=== PATIENT | female | born 1965 | race Caucasian/White ===

== ENCOUNTER 2018-01-12 13:48 | Emergency (ER) | payer OTHER ==
[~2018-01-12] VITALS: Ht 157.5 cm; Wt 53.5 kg
[2018-01-12] MEDS ORDERED: ZANTAC 150MG T150 MG PO (14:06)
[2018-01-12] MEDS ORDERED: ZANTAC 150MG T150 M1 PO (14:06)
[2018-01-12 14:26] LABS: ABSOLUTE BASOPHILS 0.1 thou/uL (0.0-0.2); ABSOLUTE EOSINOPHILS 0.2 thou/uL (0.0-0.7); ABSOLUTE LYMPHOCYTES 1.6 thou/uL (0.8-5.3); ABSOLUTE MONOCYTES 0.3 thou/uL (0.0-1.2); ABSOLUTE NEUTROPHILS 3.2 thou/uL (1.6-8.1); BASOPHILS 1.3 %; EOSINOPHILS 3.5 %; HEMATOCRIT 44.5 % (37.0-47.0); LYMPHOCYTES 29.3 %; MCH 28.8 pg (26.0-34.0); MCHC 33.7 g/dL (28.0-37.0); MCV 85.6 fL (80.0-100.0); MONOCYTES 6.4 %; MPV 9.8 fl. (7.2-11.1); NUCLEATED RBCS 0 /100WBC; PLATELET COUNT* 258 thou/uL (150-400); POLYS 59.5 %; RDW-CV 13.6 % (10.5-14.5); WBC 5.4 thou/uL (4.0-11.0)
[2018-01-12 14:31] LABS: ANION GAP 11 mmol/L (7-16); BUN 17 mg/dL (7-18); CALCIUM 9.2 mg/dL (8.5-10.1); CHLORIDE 101 mmol/L (98-107); CO2 26 mmol/L (21-32); CREATININE 0.8 mg/dL (0.6-1.3); GLUCOSE 82 mg/dL (70-99); POTASSIUM 3.7 mmol/L (3.5-5.1); SODIUM 138 mmol/L (136-145)
[2018-01-12 14:41] LABS: ALBUMIN 4.2 g/dL (3.4-5.0); ALKALINE PHOSPHATASE 46 U/L (46-116); NT-PRO BRAIN NAT PEPTIDE 46 pg/mL (<300); SGOT 15 U/L (15-37); SGPT 23 U/L (30-65); TOTAL BILIRUBIN 0.7 mg/dL (<0.1-1.0); TOTAL PROTEIN 7.8 g/dL (6.4-8.2); TROPONIN-I LEVEL <0.06 ng/mL (<0.06)
[2018-01-12] MEDS ORDERED: LYSTEDA650 MG PO (15:02)
[2018-01-12] MEDS ORDERED: IRON325 PO (15:03)
[2018-01-12] MEDS ORDERED: PROBIOTIC1 EAC1 PO (15:03)
[2018-01-12] MEDS ORDERED: FISH OIL 1,001000 M2 PO (15:03)
[2018-01-12] MEDS ORDERED: FLONASE 0.05%50 MCG NASAL (15:03)
[2018-01-12] MEDS ORDERED: VITAMIN D3400 UNIT PO (15:04)
[2018-01-12] MEDS ORDERED: VITAMIN B COMP1 EACH PO (15:04)
[2018-01-12 15:07] LABS: URINE BILIRUBIN NEGATIVE (Negative); URINE BLOOD NEGATIVE (Negative); URINE CLARITY CLEAR; URINE COLOR YELLOW; URINE GLUCOSE-RANDOM NEGATIVE (Negative); URINE KETONES TRACE (Negative); URINE LEUKOCYTES-REFLEX NEGATIVE (Negative); URINE NITRITE-REFLEX NEGATIVE (Negative); URINE PROTEIN NEGATIVE (Negative); URINE SPECIFIC GRAVITY <= 1.005 (1.005-1.030); URINE UROBILINOGEN 0.2 E.U./dl (0.2-1.0)
[2018-01-12 16:14] VITALS: BP 109/69
--- NOTE | 2018-01-13 13:07 | EKG ---
[place] [address] ELECTROCARDIOGRAM REPORT Name: ISELA DOVER Room: [facility]#: [id number] Admission: 01/12/18 Attend Phys: Discharge: 01/12/18 Date of : 61 Report #: [id number] THIS REPORT FOR: //name// [facility] ED Test Date: 2018-01-12 Test Time: 13:53:16 Pat Name: ISELA DOVER Department: Room: Gender: F Ginger Farmer: Sonia KRUEGER : 1965 Requested By: Tiffany Hickey Order Number: [id number] MD: James Guerrero Measurements Intervals Spicer Rate: 76 P: 51 ME: 123 QRS: 61 QRSD: 83 T: 44 QT: 364 QTc: 410 Interpretive Statements Sinus rhythm Compared to ECG 12/17/2006 17:08:31 No significant changes Electronically Signed On 01-13-2018 13:07:11 CDT by James Guerrero [email or web address] <ELECTRONICALLY SIGNED> By: James Guerrero MD, [facility] 01/13/18 1307 [id number] 1353 James Guerrero MD, FAC /EPI
== END 2018-01-12 16:14 | disposition home or self-care (01) ==
LOC: M.ERS 13:48
PROVIDERS: Nurse Practitioner Family
DX: R07.9 Chest pain, unspecified (principal); R00.2 Palpitations; I49.3 Ventricular premature depolarization; K21.9 Gastro-esophageal reflux disease without esophagitis; Z90.49 Acquired absence of other specified parts of digestive tract; Z88.6 Allergy status to analgesic agent